=== PATIENT | male | born 1990 | race Hispanic/Latino ===

== ENCOUNTER 2020-07-09 18:45 | Emergency (ER) | payer SELFPAY ==
[2020-07-09 19:05] VITALS: BP 121/64
[2020-07-09] MEDS ORDERED: IBUPROFEN 600 MG TAB PO ONE (19:44)
[2020-07-09] MEDS ORDERED: ACETAMINOPHEN 500 MG TAB PO ONE (19:44)
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
== END 2020-07-09 21:50 | disposition home or self-care (01) ==
LOC: ED 18:45
DX: S13.9XXA Sprain of joints and ligaments of unspecified parts of neck, initial encounter (principal); M62.830 Muscle spasm of back; M62.838 Other muscle spasm; J45.909 Unspecified asthma, uncomplicated; Z79.899 Other long term (current) drug therapy
CPT/HCPCS: 72125; 72131; 99283